=== PATIENT | male | born 1955 | race African-American/Black ===

== ENCOUNTER 2017-06-12 13:51 | Inpatient (IN) | payer OTHER ==
[2017-06-12] MEDS ORDERED: Acetaminophen 500 MG TAB PO PRN (20:21)
[2017-06-12] MEDS ORDERED: Ondansetron ODT 4 MG TAB PO PRN (20:21)
[2017-06-12] MEDS ORDERED: Ondansetron HCl/PF 4 MG/2 ML Vial IVP PRN (20:21)
[2017-06-12] MEDS ORDERED: cloNIDine 0.1 MG TAB PO PRN (20:21)
[2017-06-12] MEDS ORDERED: Acetaminophen 650 MG Suppository PR PRN (20:21)
[2017-06-12] MEDS ORDERED: hydrALAZINE 20 MG/ML VIAL SLOW IVP PRN (20:21)
--- NOTE | 2017-06-12 21:18 | RAD ---
PORTABLE AP ABDOMINAL RADIOGRAPH: 06/12/17 HISTORY: Small bowel obstruction. FINDINGS: There are dilated loops of small bowel based on radiographic evaluation. Some of the loops measure up to 5.8 cm. There is gas seen within portions of the colon. No suspicious calcifications are seen. De generative changes are noted in the spine. IMPRESSION: Dilated loops of small bowel which may related to partial small bowel obstruction or ileus. Upright i maging was not performed to evaluate for differential air fluid levels related to mechanical small rasheeda wel obstruction. CT scan may be helpful for further evaluation. POS: [facility]
[2017-06-12] MEDS: Pantoprazole 40 MG VIAL IVP SCH ×2 (22:55)
[2017-06-12] MEDS: Morphine 4 MG/ML VIAL SLOW IVP PRN (22:55)
[2017-06-12] MEDS: Sodium Chloride 0.9% 1,000 ML IV SCH (22:56)
--- NOTE | 2017-06-12 23:39 | HP ---
DATE OF ADMISSION: 06/12/2017 PRIMARY CARE PHYSICIAN: Ozzy Nguyen in [place], [place]. CHIEF COMPLAINT: Abdominal pain with nausea and vomiting. HISTORY OF PRESENT ILLNESS: This is a 61-year-old -Algerian male who presents to [facility] and transferred from [facility] [place] after presenting wi th increasing abdominal pain over the last 48 hours with associated nausea and vomiting. The patient states the symptoms began somewhat abruptly 2 days prior to this evaluation with associated nausea a nd multiple episodes of vomiting. The patient denies any recent travel history, trauma, injury, wu ge to his diet and states his last bowel movement was within the last 24 hours. The patient denies a ny prior history of bowel obstruction, but does state that he underwent colon resection for colon car cinoma with postoperative chemotherapy in 2006. The patient denies any dysuria, fever, chills, short ness of breath, or chest pain. The patient initially presented to [facility] in [place]. At which point, the patient was placed on NG tube with intermittent suction. Th e patient had return of large volume of gastric contents. The patient was subsequently transferred t o [place], [place]. At which point, the patient was then transferred to [facility] due to insurance issues. The patient states after placement of th e NG tube, he felt somewhat relieved and has had no further episodes of emesis. The patient denies t aking any home remedies for his symptoms and denies any sick contacts or family members with similar symptoms. PAST MEDICAL HISTORY: 1. Hypertension. 2. Coronary artery disease. 3. Hyperlipidemia. 4. Colon carcinoma, status post resection. 5. Question of depression. PAST SURGICAL HISTORY: 1. Status post colon resection. 2. Status post umbilical hernia repair. CURRENT MEDICATIONS: 1. Lipitor 10 mg p.o. daily. 2. Invega Sustenna 234 mg intramuscularly every month. 3. Mirtazapine 7.5 mg p.o. at bedtime. 4. Olmesartan 20 mg p.o. daily. 5. Omeprazole 40 mg p.o. daily. ALLERGIES: No known drug allergies. FAMILY HISTORY: No inheritable diseases per patient report. SOCIAL HISTORY: Patient resides in the [place], [place] area. Disabled after diagnosis of colon carc inoma. No current alcohol, tobacco, or illicit drug use. REVIEW OF SYSTEMS: The following complete review of systems was negative, unless otherwise mentioned in the HPI or below: Constitutional: Weight loss or gain, ability to conduct usual activities. Sk in: Rash, itching. Eyes: Double vision, pain. ENT/Mouth: Nose bleeding, neck stiffness, pain, te nderness. Cardiovascular: Palpitations, dyspnea on exertion, orthopnea. Respiratory: Shortness of breath, wheezing, cough, hemoptysis, fever or night sweats. Gastrointestinal: Poor appetite, abdom inal pain, heartburn, nausea, vomiting, constipation, or diarrhea. Genitourinary: Urgency, frequenc y, dysuria, nocturia. Musculoskeletal: Pain, swelling. Neurologic/Psychiatric: Anxiety, depressio n. Allergy/Immunologic: Skin rash, bleeding tendency. PHYSICAL EXAMINATION: VITAL SIGNS: On admission, blood pressure 116/79, pulse 92, respiratory rate 19, temperature 98.6 de grees Fahrenheit, O2 saturation 95% on room air. GENERAL APPEARANCE: This is a 61-year-old -Algerian male, alert and oriented x3, flat affect, responsive, in no acute distress. HEENT: Pupils are equal, round, and reactive to light and accommodation. Extraocular muscles are in tact. No scleral icterus. No conjunctival injection. Nares patent. Nasogastric tube in place. OP is clear. Oral mucosa dry appearing. NECK: Supple. No cervical adenopathy, no thyromegaly, no carotid bruits, no JVD appreciated. Cervi hazel spine with full active and passive range of motion. No meningeal signs appreciated. CHEST: Lungs are clear to auscultation bilaterally. No rhonchi or wheezing. CARDIOVASCULAR: S1, S2 without noted murmur, rub, or gallop. ABDOMEN: Rounded, soft with mild tenderness to palpation in the midepigastric region. No palpable m ass. Bowel sounds are positive in all four quadrants. EXTREMITIES: Warm and dry with fair turgor. No clubbing, cyanosis, or asymmetric edema appreciated. Pulses palpable distally at the dorsalis pedis, posterior tibial, and popliteal arteries bilaterall y. Capillary refill less than 2 seconds. NEUROLOGIC: Cranial nerves II through XII are grossly intact. No focal or lateralizing signs apprec iated. PERTINENT LABORATORY AND X-RAY FINDINGS: No laboratory data available. No radiographic information available to review. ASSESSMENT AND PLAN: 1. Partial small bowel obstruction. We will continue NG tube to low intermittent wall suctioning. N.p.o. except sips of water. We will consult General Surgery Service in the a.m. for further recomme ndations. Check KUB of the abdomen. Pain control with morphine sulfate 2 mg IV every 4 hours p.r.n. 2. Nausea and vomiting secondary to #1. We will continue Zofran 4 mg IV q.6 hours p.r.n. N.p.o. ex cept sips of water. 3. Hypertension. Resume home antihypertensive regimen and monitor clinical response. 4. History of colon carcinoma. Continue general supportive measures as outlined previously. Check KUB of the abdomen. Consider CT imaging of the abdomen and pelvis. We will obtain records from [facility] or [facility]. 5. Prophylaxis. Sequential compression devices while in bed. Pepcid 20 mg IV q.12 hours. 6. Code status is FULL. Surrogate medical decision maker is patient's brother, Miguelangel Nickerson.
[2017-06-13 04:37] VITALS: BMI 32.1
[2017-06-13 06:11] LABS: ALT (SGPT) 9 U/L (8-55); AST (SGOT) 16 U/L (5-34); Albumin 3.7 g/dL (3.4-4.8); Alkaline Phosphatase 50 U/L (40-150); Anion Gap 13 mmol/L (10-20); BUN (Urea Nitrogen) 19 mg/dL (8.4-25.7); Calc. Creatinine Clearance 89 mL/min (70-130); Carbon Dioxide 31 mmol/L (23-31); Chloride 104 mmol/L (98-107); Estimated GFR-MDRD 64; Globulin 2.8 g/dL (2.4-3.5); Glucose 79 mg/dL (80-115); Potassium 3.2 mmol/L (3.5-5.1); Protein, Total 6.5 g/dL (5.8-8.1); Sodium 145 mmol/L (136-145)
[2017-06-13 06:25] LABS: Eosinophils 6 % (0-10); Hemoglobin 11.5 g/dL (14.0-18.0); Lymphocytes 32 % (21-51); MDiff Complete? YES; Mean Corpuscular HGB CONC 33.3 g/dL (32.0-36.0); Mean Corpuscular Hemoglobin 27.6 pg (27.0-31.0); Mean Corpuscular Volume 82.8 fl (80.0-94.0); Mean Platelet Volume 8.2 fL (7.4-10.4); Monocytes 10 % (0-10); Neutrophil 49 % (42-75); Nucleated RBC 1 % (0); PLT Morphology Comment Appears Adequate; Platelet Count 194 thou/uL (130-400); RBC Distribution Width 11.9 % (11.5-14.5); RBC Morphology Normal; Reactive Lymphocytes 3 % (0-10); Red Blood Cell (RBC) Count 4.18 mill/uL (4.70-6.10); White Blood Cell (WBC) Count 4.8 thou/uL (4.8-10.8)
[2017-06-13] MEDS: Sodium Chloride 0.9% 1,000 ML IV SCH ×3 (08:02→15:03)
[2017-06-13] MEDS: Morphine 4 MG/ML VIAL SLOW IVP PRN ×3 (08:43→21:33)
[2017-06-13] MEDS ORDERED: MD-Gastroview 120 ML BOT ONE (14:18)
--- NOTE | 2017-06-13 15:37 | PDOC.PN ---
- Subjective Encounter Start Date: 06/13/17 Encounter Start Time: 15:30 Subjective: f/u for partial SBO tx with NGT decompression. KUB showed dilated small -: bowel loops. Some abd discomfort, no recurrent emesis. - Objective Resuscitation Status: Resuscitation Status FULL:Full Resuscitation MAR Reviewed: Yes Vital Signs & Weight: Vital Signs (12 hours) Temp Pulse Resp BP Pulse Ox 06/13/17 11:30 98.5 F 92 16 129/82 93 L 06/13/17 07:45 98.3 F 95 16 06/13/17 07:35 98.3 F 95 16 137/88 100 06/13/17 04:53 99.2 F 88 16 114/69 95 Weight Admit Weight 244 lb Weight 244 lb I&O: 06/12/17 06/13/17 06/14/17 06:59 06:59 06:59 Intake Total 900 Output Total 200 Balance 700 Result Diagrams: 06/13/17 05:19 06/13/17 05:19 Radiology Reviewed by me: Yes (KUB - dilated small bowel loops) Phys Exam - Physical Examination Constitutional: NAD NGT in place HEENT: PERRLA, moist MMs, sclera anicteric, oral pharynx no lesions Neck: no nodes, no JVD, supple Respiratory: no wheezing, no rales, no rhonchi, clear to auscultation bilateral Cardiovascular: RRR, no significant murmur, no rub, gallop mild distention and TTP, no mass Gastrointestinal: positive bowel sounds Musculoskeletal: no edema, pulses present Neurological: non-focal, normal sensation, moves all 4 limbs Psychiatric: normal affect, A&O x 3 Skin: no rash, normal turgor, cap refill <2 seconds Dx/Plan (1) Partial small bowel obstruction Status: Acute Comment: KUB confirmed partial small bowel obstruction, Gen surgery assistance appreciated, NGT LIWS, Morphine Sulfate for pain control, SBFT pending (2) Nausea & vomiting Code(s): R11.2 - NAUSEA WITH VOMITING, UNSPECIFIED Status: Acute Comment: Improved with NGT, NPO, Antiemetics prn (3) CKD (chronic kidney disease), stage II Code(s): N18.2 - CHRONIC KIDNEY DISEASE, STAGE 2 (MILD) Status: Chronic Comment: Continue IVF's, avoid nephrotoxic meds and contrast media (4) Hypokalemia Code(s): E87.6 - HYPOKALEMIA Status: Acute Comment: Change IVF NS with 40meq KCL @ 75ml/h, repeat K+ level in am (5) HTN (hypertension) Code(s): I10 - ESSENTIAL (PRIMARY) HYPERTENSION Status: Chronic Qualifiers: Hypertension type: essential hypertension Qualified Code(s): I10 - Essential (primary) hypertension Comment: Hold Olmesartan currently pending po intake, serial BP monitoring - Plan out of bed/ambulate, DVT proph w/SCDs Stable currently -: Continue NGT LIWS -: Appreciate Gen surgery assistance -: KUB with SBFT pending -: Change IVF NS with KCL * AM lab: CMP, CBC
--- NOTE | 2017-06-13 16:26 | HP ---
HISTORY OF PRESENT ILLNESS: Nacho Nickerson is a 61-year-old black male who lives in [place]. He is single. He is disabled from his colon cancer. He used to work doing welding. He states his life is pretty much sedentary. He does drive independently. The patient states that (today is Sat ) began having epigastric right upper quadrant pain, back radiation and nausea and vomiting. Hi s nausea and vomiting resolved. Apparently he was seen at [facility] in [place] and tr ansferred to [facility] in [place] and then for insurance reasons, transferred to this hospital last night. There are no records from those referring facility is available. Dr. Col haque, Hospitalist, has admitted him and his history is available. On admission, the patient's white cou nt is 4, hemoglobin 11.5. Comprehensive metabolic profile is essentially unremarkable. Creatinine 1 .37, bilirubin 2. The patient did have an abdominal x-ray this hospitalization demonstrated some dil ated small bowel loops, gas in the colon, but findings are limited due to portable nature of the x-ra y. The patient is able to stand. He does ambulate. The patient reports he had a bowel movement thi s morning. NG tube is down to about 73 cm from the nares and output overnight from his NG tube is re corded at 200 mL. This, however, is recorded in 06/14/2017 graphics and there is no record of [address] Vicente saw him at 842 last night and he probably made to the floor early this morning . The patient has never had such episodes before. He denies any history of biliary symptoms. PAST MEDICAL HISTORY: Hypertension, hyperlipidemia, history of colon cancer, history of depression. He reports being on disability from his colon cancer. The patient denies any history of heart surgery, cardiology consults or Cardiology stress test. Ana e is no EKG in the chart and I cannot find any records were submitted for evaluation at [facility] in [place] and from his stay at [facility] in [place] before he was tra nsferred here yesterday. He does have mild elevation of his creatinine on labs obtained here and the re are no prior records to compare to know if this is chronic kidney disease or acute kidney injury. PAST SURGICAL HISTORY: The patient underwent at [facility] 2006 operation, open laparotomy for colon cance r. He does not recall what part of his colon was removed. He reports having had a [facility]. He had a hernia repair about his umbilicus. He cannot recall that was before o r after his laparotomy in [place]. REVIEW OF SYSTEMS: [place] point noncontributory otherwise. PHYSICAL EXAMINATION: VITAL SIGNS: 6 feet 1, 244 pounds, 32 BMI. LUNGS: Clear to auscultation. EXTREMITIES: Cardiac rhythm without murmur or gallop. ABDOMEN: Soft, non-tympanitic, occasional bowel sounds. There is no tenderness. Midline incision a sy[place] the umbilicus to pubis well healed. No hernias evident. EXTREMITIES: Unremarkable. LABORATORY DATA: Sodium 145, potassium 3.2, bilirubin 2.0. AST, ALT, alkaline phosphatase are ion l. GFR 64, creatinine 1.37, hemoglobin 11, white count 4. Abdominal x-rays portable as noted above. No upright films obtained. ASSESSMENT AND PLAN: 1. History given for a bowel obstruction, although the portable single view x-ray suggests a slightl y dilated small bowel loops, but a 2-view abdomen was not obtained. I do not have any records as to whether he had a CAT scan or other abdominal x-ray results from the referring hospitals, I have reque sted that. At this point, due to his low volume of NG tube output and lack of tympany on exam and un impressive portable abdominal x-ray, we would obtain a small bowel follow-through. We will await the se studies. In addition, we will obtain ultrasound of the gallbladder since his pain is epigastric, right upper quadrant, on admission his bilirubin slightly elevated. We will repeat his hepatic funct ion tomorrow. We will await these radiological surveys and clinical course prior to any other recomm endations. 2. Possible acute kidney injury or mild chronic kidney disease. Follow up basic metabolic profile t omorrow. 3. History of colon cancer. He apparently is up to date on his colonoscopy performed four years ago in [place]. No results are available. He did undergo radiation and chemotherapy at that time.
[2017-06-13] MEDS: D5 NS w/ 40 mEq KCl 1,000 ML IV SCH (16:40)
--- NOTE | 2017-06-13 16:44 | ULT ---
RIGHT UPPER QUADRANT ULTRASOUND 06/13/17 COMPARISON: None. HISTORY: Epigastric pain. TECHNIQUE: Multiplanar colbert scale sonographic imaging of the right upper quadrant obtained. FINDINGS: The pancreas is obscured by bowel gas. No focal liver lesion or intrahepatic biliary dilatation is seen. The common bile duct measures approximately 4-5 mm, within normal limits. Right kidney measures 12 cm in craniocaudal dimension and demonstrates no stone, hydronephrosis or ma ss. The extrusion press adjuster reports a negative South's sign. The gallbladder wall is normal in thickness. No pericholecystic fluid or gallbladder stones. IMPRESSION: No acute findings. POS: [facility]
[2017-06-13] MEDS ORDERED: Ondansetron ODT 8 MG TAB PO PRN (18:51)
[2017-06-13] MEDS ORDERED: Ondansetron ORAL SOLN. 4 MG/5 ML UDCUP PO PRN ×4 (18:51)
[2017-06-13] MEDS ORDERED: Ondansetron ODT 8 MG TAB SL PRN (18:51)
[2017-06-13] MEDS: Pantoprazole 40 MG VIAL IVP SCH ×2 (21:32)
[2017-06-13] MEDS: Mirtazapine 15 MG TAB PO SCH (21:32)
[2017-06-14] MEDS: D5 NS w/ 40 mEq KCl 1,000 ML IV SCH ×2 (02:29→17:18)
[2017-06-14] MEDS: Morphine 4 MG/ML VIAL SLOW IVP PRN (05:48)
[2017-06-14 06:12] LABS: ALT (SGPT) 10 U/L (8-55); AST (SGOT) 15 U/L (5-34); Albumin 3.7 g/dL (3.4-4.8); Alkaline Phosphatase 49 U/L (40-150); Bilirubin, Direct 0.8 mg/dL (0.1-0.3); Bilirubin, Total 1.9 mg/dL (0.2-1.2); Protein, Total 6.5 g/dL (5.8-8.1)
[2017-06-14 06:14] LABS: ALT (SGPT) 11 U/L (8-55); AST (SGOT) 16 U/L (5-34); Albumin 3.7 g/dL (3.4-4.8); Alkaline Phosphatase 49 U/L (40-150); Anion Gap 11 mmol/L (10-20); BUN (Urea Nitrogen) 17 mg/dL (8.4-25.7); Bilirubin, Total 1.9 mg/dL (0.2-1.2); Calc. Creatinine Clearance 101 mL/min (70-130); Carbon Dioxide 28 mmol/L (23-31); Chloride 113 mmol/L (98-107); Estimated GFR-MDRD 74; Globulin 2.8 g/dL (2.4-3.5); Glucose 100 mg/dL (80-115); Potassium 3.5 mmol/L (3.5-5.1); Protein, Total 6.5 g/dL (5.8-8.1); Sodium 148 mmol/L (136-145)
[2017-06-14 06:24] LABS: Band 3 % (5-11); Lymphocytes 25 % (21-51); MDiff Complete? YES; Mean Corpuscular Hemoglobin 28.9 pg (27.0-31.0); Mean Corpuscular Volume 82.6 fl (80.0-94.0); Mean Platelet Volume 7.9 fL (7.4-10.4); Monocytes 12 % (0-10); Neutrophil 59 % (42-75); PLT Morphology Comment Appears Adequate; Platelet Count 203 thou/uL (130-400); RBC Distribution Width 11.9 % (11.5-14.5); Reactive Lymphocytes 1 % (0-10); Red Blood Cell (RBC) Count 4.15 mill/uL (4.70-6.10); White Blood Cell (WBC) Count 3.8 thou/uL (4.8-10.8)
--- NOTE | 2017-06-14 11:25 | RAD ---
SMALL BOWEL FOLLOW THROUGH STUDY: Date: 06/13/17 HISTORY: Small bowel obstruction. COMPARISON: None. FINDINGS: The patient was given contrast through the enteric tube. There is dilatation of proximal small bowel loops. There is contrast seen in the large bowel after 9 hours. IMPRESSION: Dilated loops of small bowel without a high grade obstruction as there is contrast seen within the la rge bowel after 9 hours. POS: [facility]
--- NOTE | 2017-06-14 13:52 | RAD ---
ABDOMEN 2 VIEWS WITH 1 VIEW CHEST: Date: 06/14/17 HISTORY: Small bowel obstruction. COMPARISON: Small bowel follow-through from prior day. FINDINGS: There are some peripheral parenchymal opacities in the right lung base. Port catheter is in place. Enteric tube is in place with tip in the gastric fundus. There are dilated loops of small bowel with air fluid levels. Contrast is seen throughout the large b owel. IMPRESSION: 1. No evidence of high grade small bowel obstruction. 2. Enteric tube tip at gastric fundus. 3. Opacities in right lung base with port catheter in place. This may be a sequelae of scarring or m ass. POS: [facility]
--- NOTE | 2017-06-14 16:43 | PDOC.PN ---
- Subjective Encounter Start Date: 06/14/17 Encounter Start Time: 11:00 Subjective: pt up in bed no complains, is passing gas - Objective Resuscitation Status: Resuscitation Status FULL:Full Resuscitation Vital Signs & Weight: Vital Signs (12 hours) Temp Pulse Resp BP BP Pulse Ox 06/14/17 16:28 98.8 F 74 16 125/81 97 06/14/17 11:30 98.3 F 91 16 146/91 H 95 06/14/17 08:00 98.9 F 81 17 148/90 H 93 L Weight Admit Weight 244 lb Weight 244 lb I&O: 06/13/17 06/14/17 06/15/17 06:59 06:59 06:59 Intake Total 1900 900 Output Total 300 450 Balance 1600 450 Result Diagrams: 06/14/17 05:24 06/14/17 05:24 Phys Exam - Physical Examination HEENT: PERRLA, moist MMs, sclera anicteric, TM's clear, oral pharynx no lesions , 2+ tonsils Neck: no nodes, no JVD, supple, full ROM Respiratory: no wheezing, no rales, no rhonchi, wheezing present, clear to auscultation bilateral Cardiovascular: RRR, no significant murmur, no rub, gallop, irregular Gastrointestinal: soft, non-tender bsx2, ng tube Musculoskeletal: no edema, pulses present, edema present Dx/Plan - Plan (1) Partial small bowel obstruction (2) Nausea & vomiting (3) CKD (chronic kidney disease), stage II (4) Hypokalemia am (5) HTN (hypertension) - Plan out of bed/ambulate, DVT proph w/SCDs Stable currently -: Continue NGT LIWS -: Appreciate Gen surgery assistance -: KUB in am small bowel no high grade obs -:continue current fluids will check labs in am. brother updated * . Review of Systems - Review of Systems Eyes: negative: Pain, Vision Change, Conjunctivae Inflammation, Eyelid Inflammation, Redness, Other ENT: negative: Ear Pain, Ear Discharge, Nose Pain, Nose Discharge, Nose Congestion, Mouth Pain, Mouth Swelling, Throat Pain, Throat Swelling, Other Respiratory: negative: Cough, Dry, Shortness of Breath, Hemoptysis, SOB with Excertion, Pleuritic Pain, Sputum, Wheezing Cardiovascular: negative: chest pain, palpitations, orthopnea, paroxysmal nocturnal dyspnea, edema, light headedness, other Gastrointestinal: negative: Nausea, Vomiting, Abdominal Pain, Diarrhea, Constipation, Melena, Hematochezia, Other Genitourinary: negative: Dysuria, Frequency, Incontinence, Hematuria, Retention , Other - Medications/Allergies Allergies/Adverse Reactions: Allergies Allergy/AdvReac Type Severity Reaction Status Date / Time No Known Drug Allergies Allergy Verified 06/12/17 20:28 Medications: Current Medications Acetaminophen (Tylenol) 1,000 mg PO Q6H PRN PRN Reason: Headache/Fever or Mild Pain Acetaminophen (Tylenol) 650 mg FL Q4H PRN PRN Reason: Headache/Fever or Mild Pain Clonidine (Catapres) 0.1 mg PO Q4H PRN PRN Reason: Systolic BP > 180 Hydralazine HCl (Apresoline) 10 mg SLOW IVP Q4H PRN PRN Reason: Systolic BP > 180 Potassium Chloride/Dextrose/Sod Cl (D5 Ns W/ 40 Meq Kcl) 1,000 mls @ 75 mls/hr IV .[id number] [facility] Last Admin: 06/14/17 02:29 Dose: Not Given Mirtazapine (Remeron) 7.5 mg PO HS [facility] Last Admin: 06/13/17 21:32 Dose: 7.5 mg Morphine Sulfate (Morphine) 2 mg SLOW IVP Q4H PRN PRN Reason: Moderate Pain (4-6) Last Admin: 06/14/17 05:48 Dose: 2 mg Ondansetron HCl (Zofran Odt) 4 mg PO Q6H PRN PRN Reason: Nausea/Vomiting Last Admin: 06/13/17 17:25 Dose: 4 mg Ondansetron HCl (Zofran) 4 mg IVP Q6H PRN PRN Reason: Nausea/Vomiting Ondansetron HCl (Zofran Odt) 8 mg SL BIDPRN PRN PRN Reason: Nausea/Vomiting Ondansetron HCl (Zofran Odt) 8 mg PO BIDPRN PRN PRN Reason: Nausea/Vomiting Ondansetron HCl (Zofran) 4 mg PO Q6H PRN PRN Reason: Nausea/Vomiting Ondansetron HCl (Zofran) 8 mg PO Q6H PRN PRN Reason: Nausea/Vomiting Pantoprazole Sodium (Protonix) 40 mg IVP 2100 [facility] Last Admin: 06/13/17 21:32 Dose: 40 mg Sodium Chloride (Flush - Normal Saline) 10 ml IVF Q12HR [facility] Last Admin: 06/14/17 09:33 Dose: Not Given Sodium Chloride (Flush - Normal Saline) 10 ml IVF PRN PRN PRN Reason: Saline Flush
[2017-06-14] MEDS ORDERED: Ibuprofen 600 MG TAB PO PRN (17:17)
[2017-06-14] MEDS ORDERED: traMADol HCl 50 MG TAB PO PRN (17:17)
[2017-06-14] MEDS ORDERED: PALIPERIDONE PALMITATE IM SCH ×3 (17:30→17:45)
--- NOTE | 2017-06-14 18:18 | PRG ---
DATE OF SERVICE: 06/14/2017 SUBJECTIVE: Mr. Nickerson is doing well today. OBJECTIVE: VITAL SIGNS: 98.8 degrees, 74, 16, 125/81. LUNGS: Clear to auscultation. CARDIAC: Regular rate and rhythm murmur or gallop. ABDOMEN: Soft, nontender, no masses. Good bowel sounds. LABORATORY DATA: Small bowel follow-through obtained last night and followup x-rays this morning rev eal absence of bowel obstruction. There are no significantly dilated small bowel loops. There is co ntrast in the colon. He has had multiple bowel movements. NG tube revealed an output of 300 mL. Th morning, I removed his NG tube. CBC, base met is normal this morning. His mild elevation of his creatinine 1.37 has returned to norm al at 1.2. GFR is normal. His bilirubin is elevated to 1.9, down from 2.0, this may be more chronic . Ultrasound of the gallbladder yesterday was normal. No biliary obstruction, no gallstones. ASSESSMENT AND PLAN: 1. Resolved bowel obstruction. Remove NG tube, advance diet, saline lock. Hopefully, can be discha rged home tomorrow. 2. Elevated liver function tests, uncertain etiology, may be related to obesity, 6 foot, 244 pounds, 32 BMI. No further indications for surgical evaluation or therapy.
[2017-06-14] MEDS ORDERED: Enoxaparin Sodium 40 MG/0.4 ML SYRINGE SC SCH (21:00)
[2017-06-14] MEDS ORDERED: Atorvastatin Calcium 10 MG TAB PO SCH ×2 (21:00)
[2017-06-14] MEDS: traMADol HCl 50 MG TAB PO PRN (22:46)
[2017-06-14] MEDS: Mirtazapine 15 MG TAB PO SCH (22:46)
[2017-06-15 06:30] LABS: Anion Gap 10 mmol/L (10-20); BUN (Urea Nitrogen) 13 mg/dL (8.4-25.7); Calc. Creatinine Clearance 117 mL/min (70-130); Calcium 9.1 mg/dL (7.8-10.44); Carbon Dioxide 26 mmol/L (23-31); Chloride 109 mmol/L (98-107); Estimated GFR-MDRD 88; Glucose 95 mg/dL (80-115); Phosphorus 2.5 mg/dL (2.3-4.7); Potassium 3.5 mmol/L (3.5-5.1); Sodium 141 mmol/L (136-145)
[2017-06-15 07:35] LABS: Band 20 % (5-11); Eosinophils 4 % (0-10); Hemoglobin 11.7 g/dL (14.0-18.0); Lymphocytes 12 % (21-51); MDiff Complete? YES; Mean Corpuscular HGB CONC 34.6 g/dL (32.0-36.0); Mean Corpuscular Hemoglobin 28.4 pg (27.0-31.0); Mean Corpuscular Volume 82.2 fl (80.0-94.0); Mean Platelet Volume 7.9 fL (7.4-10.4); Monocytes 12 % (0-10); Neutrophil 45 % (42-75); PLT Morphology Comment Appears Adequate; Platelet Count 204 thou/uL (130-400); RBC Distribution Width 11.6 % (11.5-14.5); RBC Morphology Normal; Reactive Lymphocytes 7 % (0-10); White Blood Cell (WBC) Count 5.6 thou/uL (4.8-10.8)
[2017-06-15] MEDS ORDERED: Non-Formulary Item 1 EACH (Omeprazole [Omeprazole] 1 TAB) PO SCH ×2 (09:00)
[2017-06-15] MEDS ORDERED: Polyethylene Glycol 3350 17 GM Packet PO SCH (09:00)
[2017-06-15] MEDS: traMADol HCl 50 MG TAB PO PRN (10:04)
--- NOTE | 2017-06-15 13:10 | PRG ---
DATE OF SERVICE: 06/15/2017 SUBJECTIVE: Nacho Nickerson, is doing well today. He has had multiple bowel movements. He is tolerat ing a regular diet. OBJECTIVE: LUNGS: Clear to auscultation. CARDIAC: Regular rate and rhythm without murmur or gallop. ABDOMEN: Soft, nontender. Nontympanitic nondistended. ASSESSMENT AND PLAN: Resolved partial bowel obstruction. From a surgical standpoint, the patient co uld be discharged home. At this point, I will see him as needed. Please call if further assistance is necessary. I will see him as needed as an outpatient.
--- NOTE | 2017-06-15 17:25 | DIS ---
DATE OF ADMISSION: 06/12/2017 DATE OF DISCHARGE: 06/15/2017 DISCHARGE DIAGNOSES: 1. Small-bowel obstruction. 2. Right lung granuloma. 3. Mildly elevated bilirubin. 4. Hypokalemia, resolved. HOSPITAL COURSE: The patient is a very pleasant 61-year-old male who initially presented to the hosp ital with complaints of abdominal pain, nausea and vomiting. The patient did undergo CAT scan of the abdomen and pelvis at [facility]. I was able to see his CAT scan results, which indicat ed a right lower lung granuloma and possible partial small-bowel obstruction. The patient then was s een by Surgical Services at [facility]. The patient had an NG tube initially and then und erwent an acute abdominal series, which indicated no evidence of high grade small-bowel obstruction a nd opacities in the right lung base with a Port-A-Cath in place. The patient was passing flatus. Hi s NG tube was discontinued by the surgeon and the patient was fed a diet. The patient tolerated the diet and was discharged home on the . The patient's brother, Mr. Blum has been updated with morales llanes. The patient's brother also was told about the acute abdominal series finding of the opacities of the right lower lung and also the findings in the CAT scan. Recommended to take the CAT scan results to his PCP for his next appointment, specifically given his history of colon cancer. The patient wi ll be put on MiraLax upon discharge. DISCHARGE MEDICATIONS: Are as the following, mirtazapine 0.5 mg p.o. at bedtime, atorvastatin 1 p.o. at bedtime, Invega Sustenna 1.5 IM, omeprazole 1 tab p.o. daily, olmesartan and medoxomil 1 p.o. kodi ly and MiraLax 17 grams p.o. daily. PHYSICAL EXAMINATION: VITAL SIGNS: 98.7, 72, 16, 132/60 and 96% on room air. GENERAL: He is awake, alert, oriented x3, in no apparent distress. CV: S1, S2 present. No murmurs, rubs or gallops. LUNGS: Clear to auscultation, rhonchi or wheezes noted. ABDOMEN: Soft. Mild tenderness to epigastric area. Bowel sounds are present x2. DISCHARGE INSTRUCTIONS: The patient will be discharged home and follow up with PCP.
[2017-06-15 18:04] VITALS: BP 129/84; TEMP 98.4
== END 2017-06-15 18:29 | disposition home or self-care (01) | DRG 390 ==
LOC: SURG B 19:11
PROVIDERS: ADMIT Internal Medicine; ATTEND Internal Medicine
DX: K56.600 Partial intestinal obstruction, unspecified as to cause (principal); E78.5 Hyperlipidemia, unspecified; I10 Essential (primary) hypertension; Z90.49 Acquired absence of other specified parts of digestive tract; Z92.3 Personal history of irradiation; Z92.21 Personal history of antineoplastic chemotherapy; Z85.038 Personal history of other malignant neoplasm of large intestine; I25.10 Atherosclerotic heart disease of native coronary artery without angina pectoris; Z79.899 Other long term (current) drug therapy; E87.6 Hypokalemia; N18.2 Chronic kidney disease, stage 2 (mild)
CPT/HCPCS: 36415; 74018; 74022; 74250; 76705; 80048; 80053; 83735; 84100; 85007; 85025; 85027; C9113; G8978-GP-CH; G8979-GP-CH; G8980-GP-CH; J1650; J2270; Q0162

== ENCOUNTER 2018-01-30 16:26 | Inpatient (IN) | payer OTHER ==
[2018-01-30] MEDS ORDERED: Ondansetron PF 4 MG/2 ML Vial ONE (16:53)
[2018-01-30] MEDS ORDERED: Morphine 4 MG/ML VIAL ONE (16:58)
[2018-01-30] MEDS ORDERED: Ondansetron PF 4 MG/2 ML Vial IVP PRN (18:54)
[2018-01-30] MEDS ORDERED: Ondansetron ODT 4 MG TAB SL PRN (18:54)
[2018-01-30] MEDS: Dextrose 5 % And 0.9 % NaCl 1,000 ML IV SCH (19:57)
[2018-01-31] MEDS: Dextrose 5 % And 0.9 % NaCl 1,000 ML IV SCH ×4 (03:25→23:07)
[2018-01-31 05:51] VITALS: BMI 31.9
[2018-01-31] MEDS ORDERED: Ondansetron ODT 4 MG TAB SL PRN (06:26)
[2018-01-31] MEDS ORDERED: Ondansetron PF 4 MG/2 ML Vial IVP PRN (06:27)
[2018-01-31] MEDS ORDERED: Ketorolac Tromethamine 30 MG/ML VIAL IVP PRN ×2 (06:27→19:26)
[2018-01-31] MEDS ORDERED: Acetaminophen 1,000 MG in Premix Bag 1 BAG IVPB PRN ×2 (06:29→19:26)
[2018-01-31 10:54] LABS: ALT (SGPT) 7 U/L (8-55); AST (SGOT) 9 U/L (5-34); Albumin 3.4 g/dL (3.4-4.8); Alkaline Phosphatase 42 U/L (40-150); Anion Gap 10 mmol/L (10-20); BUN (Urea Nitrogen) 13 mg/dL (8.4-25.7); Bilirubin, Total 1.6 mg/dL (0.2-1.2); Calc. Creatinine Clearance 114 mL/min (70-130); Calcium 8.4 mg/dL (7.8-10.44); Carbon Dioxide 30 mmol/L (23-31); Chloride 106 mmol/L (98-107); Estimated GFR-MDRD Greater than 90; Globulin 2.7 g/dL (2.4-3.5); Glucose 105 mg/dL (80-115); Potassium 3.2 mmol/L (3.5-5.1); Protein, Total 6.1 g/dL (5.8-8.1); Sodium 143 mmol/L (136-145)
[2018-01-31 11:03] LABS: Band 12 % (5-11); Eosinophils 6 % (0-10); Hemoglobin 12.3 g/dL (14.0-18.0); Lymphocytes 37 % (21-51); MDiff Complete? YES; Mean Corpuscular HGB CONC 34.9 g/dL (32.0-36.0); Mean Corpuscular Hemoglobin 28.8 pg (27.0-31.0); Mean Corpuscular Volume 82.5 fL (78.0-98.0); Mean Platelet Volume 8.5 fL (7.4-10.4); Monocytes 9 % (0-10); Neutrophil 36 % (42-75); Platelet Count 177 thou/uL (130-400); RBC Distribution Width 11.8 % (11.5-14.5); Red Blood Cell (RBC) Count 4.28 mill/uL (4.70-6.10); White Blood Cell (WBC) Count 3.1 thou/uL (4.8-10.8)
--- NOTE | 2018-01-31 11:35 | RAD ---
ACUTE ABDOMINAL SERIES: DATE: 01/31/2018. PROVIDED CLINICAL HISTORY: Small bowel obstruction. FINDINGS: Comparison 06/14/2017. Cardiac and mediastinal silhouette is unchanged in appearance. Right-sided im planted port is again noted in similar position. Enteric catheter is noted, the distal aspects of wh ich overlie the left upper quadrant medially. The proximal sidehole lucency is likely in the region of the gastroesophageal junction. The abdominal bowel gas pattern is nonspecific. There is no evide nce for a pneumoperitoneum. The lungs appear clear. No pleural fluid or pneumothorax apparent. IMPRESSION: 1. No evidence for an acute cardiopulmonary process. 2. Nonspecific bowel gas pattern. POS: [facility]
[2018-01-31] MEDS ORDERED: PALIPERIDONE PALMITATE IM SCH (13:30)
--- NOTE | 2018-01-31 19:29 | HP ---
HISTORY OF PRESENT ILLNESS: Nacho Nickerson is a 62-year-old black male, who recently underwent upper endoscopy and colonoscopy in [place] on . He states he tolerated the bowel prep without problems, did not have any nausea or vomiting. After undergoing the procedure on , the patient has been having some abdominal discomfort. He presented to [facility], had a CAT scan demonstrating some axyx-hd-yqfxgudgfe dilated upper bowel loops, decompressed distal bowel loops without a definite transition point that was read as possible bowel obstruction. A 12-Romansh NG tube was placed to 40 cm. X-rays obtained on admission here revealed the NG tube to be in the distal esophagus. It was not repositioned in the emergency room. I repeated the 2-view abdominal x-ray this morning and the bowel-gas pattern is nonspecific. There is a dilated loop of small bowel in the left upper quadrant, but there is gas in the colon and small bowel. The patient states that his abdomen does not hurt. The NG-tube is 12-Romansh, it is now located at 45 cm. Abdominal x-rays revealed the tube to be in the distal esophagus. Gastric drainage overnight was 500 mL. ALLERGIES: NONE. TOBACCO: None. PAST MEDICAL HISTORY: Hypertension, hyperlipidemia, history of colon cancer and right colectomy, history of depression, reports disability from his colon cancer, history of chronic kidney disease, mild. PAST SURGICAL HISTORY: At [facility] in 2006, open laparotomy for colon cancer, reports having had a colonoscopy in [place] 4 years ago. Repeat EGD and colonoscopy recently last week. Hernia repair by his umbilicus in the past. MEDICATIONS: 1. Sertraline 1.5 tablets a day. 2. MiraLAX daily. 3. Invega Sustenna as directed. 4. Omeprazole 20 mg a day. 5. Medoxomil one tablet daily. 6. Mirtazapine at bedtime. 7. Lipitor at bedtime. His pharmacy is in [place], [place]. PHYSICAL EXAMINATION: VITAL SIGNS: 5 feet 10 inches, 222 pounds. 98.2, 82, 16, 130/80. LUNGS: Clear to auscultation. CARDIAC: Regular rate and rhythm without murmur or gallop. ABDOMEN: Soft, nontender, and nondistended. Non-tympanitic. Midline scar well healed without hernias. LABORATORY DATA: White count 3, hemoglobin 12 this morning, potassium 3.2, bilirubin 1.6 today, BUN and creatinine of 13 and 0.96 today. ASSESSMENT: 1. Possible ileus versus partial bowel obstruction per CAT scan in [place] yesterday. Currently, the NG tube is malpositioned. It is too small. It is not adequately functional. It has mostly fallen out. Abdominal x-rays this morning are nonspecific. Would remove his tube and give him regular diet and see how he tolerates it. 2. History of colon cancer. PLAN: Discharge home tomorrow if he is doing well. We will repeat abdominal x-rays as needed. Job ID: [id number]
[2018-01-31] MEDS: Atorvastatin Calcium 10 MG TAB PO SCH (20:50)
[2018-01-31] MEDS: Mirtazapine 15 MG TAB PO SCH (20:50)
[2018-02-01] MEDS: Dextrose 5 % And 0.9 % NaCl 1,000 ML IV SCH ×2 (04:39→13:23)
[2018-02-01 06:14] LABS: ALT (SGPT) 8 U/L (8-55); AST (SGOT) 9 U/L (5-34); Albumin 3.3 g/dL (3.4-4.8); Alkaline Phosphatase 51 U/L (40-150); Anion Gap 9 mmol/L (10-20); BUN (Urea Nitrogen) 11 mg/dL (8.4-25.7); Bilirubin, Total 1.1 mg/dL (0.2-1.2); Calc. Creatinine Clearance 106 mL/min (70-130); Calcium 8.6 mg/dL (7.8-10.44); Carbon Dioxide 31 mmol/L (23-31); Chloride 104 mmol/L (98-107); Estimated GFR-MDRD 89; Globulin 2.7 g/dL (2.4-3.5); Glucose 92 mg/dL (80-115); Potassium 3.3 mmol/L (3.5-5.1); Sodium 141 mmol/L (136-145)
[2018-02-01 06:19] LABS: Band 2 % (5-11); Eosinophils 7 % (0-10); Hemoglobin 11.6 g/dL (14.0-18.0); Lymphocytes 22 % (21-51); MDiff Complete? YES; Mean Corpuscular HGB CONC 34.2 g/dL (32.0-36.0); Mean Corpuscular Hemoglobin 28.5 pg (27.0-31.0); Mean Corpuscular Volume 83.2 fL (78.0-98.0); Mean Platelet Volume 8.5 fL (7.4-10.4); Monocytes 15 % (0-10); Neutrophil 52 % (42-75); Platelet Count 180 thou/uL (130-400); RBC Distribution Width 11.7 % (11.5-14.5); Reactive Lymphocytes 2 % (0-10); Red Blood Cell (RBC) Count 4.07 mill/uL (4.70-6.10); White Blood Cell (WBC) Count 4.3 thou/uL (4.8-10.8)
[2018-02-01] MEDS: Polyethylene Glycol 3350 17 GM Packet PO SCH (08:26)
[2018-02-01] MEDS ORDERED: Polyethylene Glycol 3350 17 GM Packet PO SCH (09:00)
--- NOTE | 2018-02-01 10:24 | RAD ---
FRONTAL RADIOGRAPH CHEST TWO VIEWS OF THE ABDOMEN: DATE: 02/01/2018. COMPARISON: 01/31/2018. HISTORY: Small bowel obstruction. FINDINGS: Frontal radiograph chest demonstrates stable increased linear interstitial density and pulmonary hype rinflation with a stable right-sided port-a-cath. No pneumothorax, pleural fluid, lobar consolidatio n, or alveolar edema. Upright imaging demonstrates no free intraperitoneal air. There is gas within the colon in the left abdomen. No gas-filled dilated small bowel. Nasogastric tube has been remove d since the prior examination. Significant stool overlies the rectum. IMPRESSION: Interval removal of nasogastric tube - otherwise, unchanged. POS: [facility]
[2018-02-01] MEDS ORDERED: Milk Of Magnesia 30 ML UDCUP PO PRN (17:02)
--- NOTE | 2018-02-01 17:36 | PRG ---
DATE OF SERVICE: 02/01/2018 SUBJECTIVE: Nacho Nickerson is doing well today. He has not had any nausea or vomiting. OBJECTIVE: VITAL SIGNS: Temperature 99 degrees, pulse 70, blood pressure 95/58. LUNGS: Clear to auscultation. CARDIAC: Regular rate and rhythm without murmur or gallop. ABDOMEN: Soft plus bowel sounds, nontender, minimal tympany. ASSESSMENT AND PLAN: Recovering partial bowel obstruction. He is tolerating his diet, but has not had a bowel movement. He has passed a small amount of flatus. Observe him today and plan to discharge home tomorrow if he is doing well. Small bowel follow-through was not performed. Abdominal x-rays this morning are nonspecific. There is no evidence of bowel obstruction. We will plan to give him MiraLax and milk of magnesia. Plan to discharge home tomorrow if he is doing well with good bowel function. Job ID: [id number]
[2018-02-01] MEDS: Atorvastatin Calcium 10 MG TAB PO SCH (21:34)
[2018-02-01] MEDS: Mirtazapine 15 MG TAB PO SCH (21:34)
[2018-02-02] MEDS: Polyethylene Glycol 3350 17 GM Packet PO SCH (08:22)
--- NOTE | 2018-02-02 12:09 | PRG ---
DATE OF SERVICE: SUBJECTIVE: Nacho Nickerson is doing well today. He tolerated his diet. He has not had bowel movements. He has not had any pain. OBJECTIVE: VITAL SIGNS: Temperature 98.6 degrees, pulse 76, blood pressure 148/88. LUNGS: Clear to auscultation. CARDIAC: Regular rate and rhythm without murmur or gallop. ABDOMEN: Soft, nontender, and nondistended, non-tympanitic. ASSESSMENT AND PLAN: Resolved partial bowel obstruction. Discharged to home today. Follow up in my office as needed. Job ID: [id number]
[2018-02-02 15:57] VITALS: BP 115/72; TEMP 99
--- NOTE | 2018-02-03 05:38 | DIS ---
DATE OF ADMISSION: 01/30/2018 DATE OF DISCHARGE: 02/02/2018 DISCHARGE DIAGNOSIS: Partial bowel obstruction from prior surgery. PROCEDURE DURING THIS HOSPITALIZATION: Abdominal x-rays. HISTORY: A 62-year-old black male, recently underwent upper and lower endoscopy in [place] a few days prior to this admission. After undergoing these procedures on , the patient has been having some abdominal discomfort. He went to [facility] in [place] and a CAT scan demonstrating noqj-ce-spifaplb dilated upper and small-bowel loops, decompressed distal small bowel loops, definite transition point not identified, suggesting a possible bowel obstruction. He was unfortunately placed a 12-Bermudian NG tube. When I saw him in the hospital, this NG tube was at 40 cm in the mid esophagus. He was not repositioned in the emergency room. At our emergency room on presentation, two-view abdominal x-ray confirmed this. On the morning of evaluation, the patient's abdomen was soft and nontender, had good bowel sounds, was passing flatus. He states he had a liquid stool the day before. The NG tube was removed. Small bowel follow-through not undertaken. Abdominal x-rays revealed some mildly distended loops, but he had good bowel sounds and bowel function. His diet was advanced. He was observed and he was discharged home with followup in my office as needed. In 2006, he had open laparotomy for colon cancer, colonoscopy 4 years ago and more recently a few days ago, tolerated the prep well without nausea or vomiting. DISCHARGE MEDICATIONS: Sertraline, MiraLax, Invega, omeprazole, and Lipitor. He lives in [place]. Job ID: [id number]
== END 2018-02-02 16:36 | disposition home or self-care (01) | DRG 390 ==
LOC: ERS 16:26 → SURG A 17:19
PROVIDERS: ADMIT Specialist; ATTEND Specialist
DX: K56.600 Partial intestinal obstruction, unspecified as to cause (principal)
CPT/HCPCS: 36415; 74022; 80053; 85025; 96374; 96375; J2270; J2405; J7042

== ENCOUNTER 2020-03-08 15:19 | Observation (INO) | payer OTHER ==
--- NOTE | 2020-03-08 15:50 | RAD ---
Exam: Chest one view HISTORY:Chest pain Comparison: 02/01/2018 FINDINGS: Cardiac silhouette:Normal cardiac silhouette. Lines and tubes: Stable right-sided Mediport catheter Aorta: Unremarkable Pulmonary vessels: Normal Costophrenic angles: Clear LUNGS: No masses or consolidation. Pneumothorax: None Osseous abnormalities: None IMPRESSION: No acute cardiopulmonary process.
[2020-03-08 15:59] LABS: #Basophils 0.1 thou/uL (0.0-0.2); #Eosinphils 0.2 thou/uL (0.0-0.7); #Lymphocytes 1.1 thou/uL (1.20-3.40); #Monocytes 0.9 thou/uL (0.11-0.59); %Basophils 0.5 % (0.0-1.0); %Eosinophils 1.7 % (0.0-10.0); %Lymphocytes 10.6 % (21.0-51.0); %Monocytes 8.8 % (0.0-10.0); %Neutrophils 78.3 % (42.0-75.0); Hemoglobin 13.4 g/dL (14.0-18.0); Mean Corpuscular HGB CONC 33.7 g/dL (32.0-36.0); Mean Corpuscular Hemoglobin 27.9 pg (27.0-31.0); Mean Corpuscular Volume 82.7 fL (78.0-98.0); Mean Platelet Volume 9.3 fL (7.4-10.4); Platelet Count 198 thou/uL (130-400); RBC Distribution Width 12.3 % (11.5-14.5); Red Blood Cell (RBC) Count 4.82 mill/uL (4.70-6.10); White Blood Cell (WBC) Count 10.2 thou/uL (4.8-10.8)
[2020-03-08 16:30] LABS: ALT (SGPT) 14 U/L (8-55); AST (SGOT) 23 U/L (5-34); Alkaline Phosphatase 84 U/L (40-110); Anion Gap 16 mmol/L (10-20); BUN (Urea Nitrogen) 11 mg/dL (8.4-25.7); Bilirubin, Total 0.8 mg/dL (0.2-1.2); CK (CPK) 151 U/L (30-200); Calc. Creatinine Clearance 0 mL/min (70-130); Calcium 8.7 mg/dL (7.8-10.44); Carbon Dioxide 24 mmol/L (23-31); Chloride 101 mmol/L (98-107); Globulin 3.8 g/dL (2.4-3.5); Glucose 78 mg/dL (80-115); Potassium 4.5 mmol/L (3.5-5.1); Protein, Total 7.8 g/dL (5.8-8.1); Sodium 136 mmol/L (136-145)
[2020-03-08 17:02] LABS: CKMB 1.3 ng/mL (0-6.6)
[2020-03-08 19:59] LABS: Troponin I 0.058 ng/mL (< 0.028)
--- NOTE | 2020-03-08 20:08 | PDOC.HHP ---
Hospitalist HPI - History of Present Illness chest pain History of Present Illness: PCP: [place], ([place]) The patient is a 64-year-old male with a past medical history significant for NC (early ), HTN and HLD that presents to the emergency department via EMS for the above complaint. The patient reports the acute onset of substernal chest pain at approximately 1 PM this afternoon. The pain is located substernally, described as sharp, constant, exacerbated and relieved by nothing. The patient reports that he has had similar episodes several times in the past couple years. He reports that this pain was more intense than his previous other episodes. The pain occurred while at rest, he was sitting down at home in a chair. EMS was called. Documented EKG showed ST elevation in leads II, III and aVF. However, cardiology was consulted by ER MD and it was determined that the EKG was consistent with a non-STEMI. The patient was given full dose aspirin, Nitropaste and fentanyl. His chest pain improved from a 10/10 pain scale to a 6/10 pain scale. He has no history of COPD/asthma. No history of DVT/PE. He has no history of illicit drug use. He denies any heart palpitations, lightheadedness or swelling to his lower extremities. He denies any shortness of breath, hemoptysis or wheezing. Denies any abdominal pain, nausea, vomiting, hematochezia/melena. He denies any dysuria or hematuria. He denies any recent fever or illness. He has no known sick contacts. ED Course: VITAL SIGNS [facility] Mar 08, 2020 15:26 DARCY Ramos Cheryl Pulse: 92, Resp: 21, Pain: 6, O2 sat: 100 on (Room Air), Time: 03/08/2020 15:26. VITAL SIGNS [facility] Mar 08, 2020 15:31 DARCY Ramos Cheryl BP: 101/60, Pulse: 74, Resp: 21, O2 sat: 98, Time: 03/08/2020 15:31. VITAL SIGNS [facility] Mar 08, 2020 16:36 DARCY Ramos Cheryl BP: 112/65, MAP: 80, Pulse: 66, Resp: 21, Temp: 98.3 (Oral), Pain: 4, O2 sat: 99 on (Room Air), Time: 03/08/2020 16:36. VITAL SIGNS [facility] Mar 08, 2020 17:42 DARCY Jones Melanie BP: 102/62, Pulse: 83, Resp: 18, Pain: 3, O2 sat: 99 on (Room Air), Time: 03/08/2020 17:42. VITAL SIGNS [facility] Mar 08, 2020 18:30 DARCY Jones Melanie BP: 114/73, Pulse: 72, Resp: 20, Pain: 3, O2 sat: 100 on (Room Air), Time: 03/08/2020 18:30. VITAL SIGNS [facility] Mar 08, 2020 19:51 DARCY Jones Melanie BP: 126/81, Pulse: 74, Resp: 28, Pain: 3, O2 sat: 96 on (Room Air), Time: 03/08/2020 19:51. Medications: None Hospitalist ROS - Review of Systems All other systems reviewed; all pertinent +/- noted in HPI/Subj - Medication Medications: sertraline [facility] Mar 08, 2020 15:41 DARCY Ramos Cheryl TABLET : Strength - 100 mg : ORAL Patient Dose: 150 mg Oral once a day (at bedtime). losartan [facility] Mar 08, 2020 15:43 DARCY Ramos Cheryl tablet : Strength - 50 mg : ORAL Patient Dose: 1 tab(s) Oral once a day. Allergies: No known drug allergies Hospitalist History - Past Medical History Source: patient, RN notes reviewed Cardiac: reports: HTN, NC ((Early )), Hyperlipidemia (Noncompliant with medication regimen) Heme/Onc: reports: Cancer (Colon cancer status post colon resection (2006)) Psych: reports: Depression - Past Surgical History Past Surgical History: reports: Other (Colon resection (2006), left rotator cuff, hiatal hernia) - Family History Family History: reports: cardiac disorder (MotherMI unknown age) - Social History Smoking Status: Never smoker Alcohol: reports: None Drugs: reports: none Living Situation: With Family Occupation: Disabled Activity level: independent ambulation - Exam General Appearance: NAD, awake alert. negative: ill appearing Eye: anicteric sclera ENT: normocephalic atraumatic Neck: supple Heart: RRR, no murmur, no gallops, no rubs, normal peripheral pulses Respiratory: CTAB, no wheezes, no rales, no ronchi, normal chest expansion, no tachypnea Gastrointestinal: soft, non-tender, normal bowel sounds, no guarding, no rigi dity, distended Gastrointestinal - other findings: Negative Rovsing sign, negative South sign Extremities: no cyanosis, no edema Skin: no rashes Neurological: no focal deficits Musculoskeletal: normal tone, normal strength Psychiatric: normal affect, A&O x 3 Hospitalist Results - Labs Result Diagrams: 03/08/20 15:32 03/08/20 15:32 Lab results: WBC 10.2 thou/uL (4.8-10.8) 03/08/20 15:32 Hgb 13.4 g/dL (14.0-18.0) L 03/08/20 15:32 Hct 39.9 % (42.0-52.0) L 03/08/20 15:32 MCV 82.7 fL (78.0-98.0) 03/08/20 15:32 Plt Count 198 thou/uL (130-400) 03/08/20 15:32 Neutrophils % 78.3 % (42.0-75.0) H 03/08/20 15:32 Sodium 136 mmol/L (136-145) 03/08/20 15:32 Potassium 4.5 mmol/L (3.5-5.1) 03/08/20 15:32 Chloride 101 mmol/L (98-107) 03/08/20 15:32 Carbon Dioxide 24 mmol/L (23-31) 03/08/20 15:32 BUN 11 mg/dL (8.4-25.7) 03/08/20 15:32 Creatinine 1.21 mg/dL (0.7-1.3) 03/08/20 15:32 Glucose 78 mg/dL (80-115) L 03/08/20 15:32 Calcium 8.7 mg/dL (7.8-10.44) 03/08/20 15:32 Total Bilirubin 0.8 mg/dL (0.2-1.2) 03/08/20 15:32 AST 23 U/L (5-34) 03/08/20 15:32 ALT 14 U/L (8-55) 03/08/20 15:32 Alkaline Phosphatase 84 U/L (40-110) 03/08/20 15:32 Creatine Kinase 151 U/L (30-200) 03/08/20 15:32 CK-MB (CK-2) 1.3 ng/mL (0-6.6) 03/08/20 15:32 Troponin I 0.058 ng/mL (< 0.028) H 03/08/20 19:26 B-Natriuretic Peptide Less than 10.0 pg/mL (0-100) 03/08/20 15:32 Serum Total Protein 7.8 g/dL (5.8-8.1) 03/08/20 15:32 Albumin 4.0 g/dL (3.4-4.8) 03/08/20 15:32 - EKG Interpretation EK lead EKG interpreted by Emergency Department Physician at time of study, 12 lead EKG shows normal sinus rhythm, Rate (beats per minute): 98, with no ectopics, Interpretation:, Conduction normal, ST, elevation, in lead II, in lead III, in aVf, T waves, Wilson normal, Clinical impression:, non-specific EKG. - Radiology Interpretation Chest x-ray Status: report reviewed by me Additional Comment: IMPRESSION: No acute cardiopulmonary process. Hospitalist H&P A/P - Problem (1) NSTEMI (non-ST elevated myocardial infarction) Code(s): I21.4 - NON-ST ELEVATION (NSTEMI) MYOCARDIAL INFARCTION Status: Acute (2) Elevated troponin Code(s): R77.8 - OTHER SPECIFIED ABNORMALITIES OF PLASMA PROTEINS Status: Acute (3) Hypertension Code(s): I10 - ESSENTIAL (PRIMARY) HYPERTENSION Status: Chronic (4) Hyperlipidemia Code(s): E78.5 - HYPERLIPIDEMIA, UNSPECIFIED Status: Chronic (5) Obesity Code(s): E66.9 - OBESITY, UNSPECIFIED Status: Chronic (6) Depression Code(s): F32.9 - MAJOR DEPRESSIVE DISORDER, SINGLE EPISODE, UNSPECIFIED Status: Chronic (7) History of colon cancer Code(s): Z85.038 - PERSONAL HISTORY OF MALIGNANT NEOPLASM OF LARGE INTESTINE Status: Chronic - Plan Plan: 64/M with PMH NC, HTN, HLD, obesity presents for chest pain. Admit to telemetry floor, observation status. Expected length of stay less than 2 midnights. EMS reported EKG ST elevations to lead 2, 3, aVF. ER MD consulted cardiology, determined NSTEMI. Initial troponin 0.071, 0.058, BNP less than 10 CXR no acute process. CMP and CBC unremarkable Given full dose aspirin, Nitropaste, fentanyl with relief of symptoms. #NSTEMI Heart score 7 Symptoms relieved by nitropaste, ASA and fentanyl Trend troponins, check TSH, mag, FLP Continue aspirin Nitropaste Start beta-ruiz and high intensity statin N.p.o. library monitor. Morphine as needed #Elevated troponin Likely related to problem #1. #Hypertension Presented normotensive. Restart home dose losartan when reconciled by nursing. #Hyperlipidemia Noncompliant. Start high intensity statin. Check FLP. #Obesity Dietary restrictions. #Depression Denies SI/HI. Takes sertraline. Restart home dose sertraline. #History of colon cancer Status post colon resection (2006). SCDs for DVT prophylaxis. No GI prophylaxis. CODE STATUS is full code. Discussed the case with attending physician, Dr. Ellington, who agrees with plan of care.
[2020-03-08] MEDS ORDERED: Nitroglycerin 0.4 MG TAB (25 Tab Bottle) SL PRN (20:33)
[2020-03-08] MEDS ORDERED: Morphine 2 MG/ML VIAL SLOW IVP PRN (20:37)
[2020-03-08] MEDS ORDERED: Calcium Carbonate 500 MG ChewTAB PO PRN (20:38)
[2020-03-08] MEDS ORDERED: Acetaminophen 325 MG TAB PO PRN (20:38)
[2020-03-08] MEDS ORDERED: Ondansetron ODT 4 MG TAB PO PRN (20:38)
[2020-03-08] MEDS ORDERED: Ondansetron PF 4 MG/2 ML Vial IVP PRN (20:38)
[2020-03-08] MEDS ORDERED: Senokot S 8.6-50 MG TAB PO PRN (20:38)
[2020-03-08] MEDS ORDERED: Carvedilol 6.25 MG TAB PO SCH (20:45)
[2020-03-08 21:36] LABS: Magnesium 1.9 mg/dL (1.6-2.6)
[2020-03-08] MEDS: Nitroglycerin 2% Ointment 1 INCH/1 GM Packet TOP SCH (22:55)
[2020-03-08 23:22] LABS: Troponin I 0.084 ng/mL (< 0.028)
[2020-03-08] MEDS ORDERED: Sodium Chloride 0.9% 1,000 ML IV SCH (23:59)
[2020-03-09] MEDS: Atorvastatin Calcium 40 MG TAB PO SCH ×2 (05:08→21:30)
[2020-03-09] MEDS: Nitroglycerin 2% Ointment 1 INCH/1 GM Packet TOP SCH (05:09)
[2020-03-09] MEDS ORDERED: Morphine 4 MG/ML VIAL ONE (05:18)
[2020-03-09 05:42] VITALS: BMI 36.6
[2020-03-09 05:52] LABS: SARS-CoV-2 PCR by NAA Not Detected (NotDetected)
[2020-03-09 06:45] LABS: #Eosinphils 0.2 thou/uL (0.0-0.7); #Lymphocytes 0.8 thou/uL (1.20-3.40); #Monocytes 0.9 thou/uL (0.11-0.59); #Neutrophils 5.6 thou/uL (1.40-6.50); %Basophils 0.2 % (0.0-1.0); %Eosinophils 2.1 % (0.0-10.0); %Lymphocytes 10.5 % (21.0-51.0); %Monocytes 12.1 % (0.0-10.0); %Neutrophils 75.2 % (42.0-75.0); Hemoglobin 12.3 g/dL (14.0-18.0); Mean Corpuscular HGB CONC 32.7 g/dL (32.0-36.0); Mean Corpuscular Hemoglobin 26.9 pg (27.0-31.0); Mean Corpuscular Volume 82.3 fL (78.0-98.0); Mean Platelet Volume 8.4 fL (7.4-10.4); Platelet Count 191 thou/uL (130-400); RBC Distribution Width 12.1 % (11.5-14.5); Red Blood Cell (RBC) Count 4.57 mill/uL (4.70-6.10); White Blood Cell (WBC) Count 7.5 thou/uL (4.8-10.8)
[2020-03-09 07:01] LABS: Anion Gap 13 mmol/L (10-20); BUN (Urea Nitrogen) 11 mg/dL (8.4-25.7); Calc. Creatinine Clearance 137 mL/min (70-130); Calcium 8.6 mg/dL (7.8-10.44); Carbon Dioxide 25 mmol/L (23-31); Cardiac Risk 4.4 (Less than 4.5); Chloride 104 mmol/L (98-107); Cholesterol 153 mg/dl (< 200 Desired); Glucose 99 mg/dL (80-115); HDL Cholesterol 35 mg/dL (>60 Neg Risk); LDL Cholesterol, Calculated 100 mg/dL; Sodium 138 mmol/L (136-145); Triglycerides 90 mg/dL (Less than 150)
[2020-03-09] MEDS ORDERED: Carvedilol 3.125 MG TAB PO SCH (08:00)
[2020-03-09] MEDS: Aspirin Chewable 81 MG TAB PO SCH (09:24)
[2020-03-09] MEDS ORDERED: Aspirin Chewable 81 MG TAB PO SCH (10:16)
[2020-03-09] MEDS ORDERED: Nitroglycerin 2% Ointment 1 INCH/1 GM Packet TOP SCH (10:17)
[2020-03-09] MEDS ORDERED: Iopamidol 370 76% 100 ML VIAL ONE (10:22)
[2020-03-09] MEDS ORDERED: Communication Order-Pharmacy FS SCH (10:30)
[2020-03-09] MEDS ORDERED: Aspirin Chewable 81 MG TAB ONE (10:35)
[2020-03-09] MEDS ORDERED: Nitroglycerin 2% Ointment 1 INCH/1 GM Packet ONE (10:35)
--- NOTE | 2020-03-09 11:15 | CON ---
DATE OF CONSULTATION: 03/09/2020 REASON FOR CONSULTATION: Non-ST elevation myocardial infarction. HISTORY OF PRESENT ILLNESS: Mr. Nacho Nickerson is a 64-year-old gentleman, who has been having chest pain and pressure for the last 2 days. It is occurring primarily at rest. He came here to the emergency room yesterday, found to have increased troponin levels. He continued to have chest pain and pressure off and on. The pain is in the middle of his chest, typical of angina, a pressure sensation. During my interview with him, he was having intermittent pressure in his chest that was mild but present. PAST HISTORY: The patient states that he was told that he had a heart attack in the early , but he said he was in [place] and he does not recall being sent to [place]. He does not recall having a heart catheterization. He has a history of hypertension. He said he has not been compliant with the medication regimen. MEDICATIONS: Prescribed medicines at home 1. Losartan. 2. Sertraline. REVIEW OF SYSTEMS: CONSTITUTIONAL: No significant weight gain or loss. VISION: No changes. HEARING: No changes. PULMONARY: No cough or wheezing GASTROINTESTINAL: No nausea, vomiting, diarrhea. SKIN: No rashes. NEUROLOGIC: No unilateral weakness or numbness. PSYCHIATRIC: No unusual depression or anxiety. ALLERGIES: NONE KNOWN. SOCIAL HISTORY: Does not smoke or abuse alcohol. PHYSICAL EXAMINATION: GENERAL: This is a pleasant 64-year-old gentleman, 6 feet tall, 269 pounds. HEENT: Eyes, sclerae nonicteric. Mouth, mucous membranes moist. NECK: Supple. No lymphadenopathy. LUNGS: Clear. CARDIAC: Normal S1, normal S2. There is no murmur, rub, or gallop. ABDOMEN: Obese, nontender. EXTREMITIES: No clubbing or cyanosis. There is no edema. Peripheral pulses are present and easily palpable. EKG: They were unable to find the initial EKG for me, but they printed off a copy that showed there was no significant ST changes in the limb leads, the chest leads only V1 through V3 were seen, but there was no evidence of ST elevation in those leads. PERTINENT LABORATORY DATA: Troponin level 0.084. LDL cholesterol is 100. Blood sugar is 99. ASSESSMENT: 1. Non-ST elevation infarction with intermittent chest pressure ongoing. 2. Hypotensive earlier this morning in the emergency room. PLAN: Proceed to cardiac catheterization. Discussed the risks of catheterization, stroke, heart attack, iodine allergy, loss of blood flow to the leg or kidney, stent thrombosis, stent restenosis, emergency bypass surgery discussed. The patient understands and wishes to proceed. Job ID: [id number]
[2020-03-09] MEDS ORDERED: Fentanyl 100 MCG/2 ML VIAL ONE (11:32)
[2020-03-09] MEDS ORDERED: Midazolam HCl 2 mg/2 ml Vial ONE (11:32)
[2020-03-09] MEDS ORDERED: Metoprolol Tartrate 5 MG/5 ML VIAL ONE (12:06)
[2020-03-09] MEDS ORDERED: Nitroglycerin 0.4 MG TAB (25 Tab Bottle) SL PRN (12:13)
[2020-03-09] MEDS ORDERED: Sodium Chloride 0.9% 200 ML IV PRN (12:13)
[2020-03-09] MEDS ORDERED: Acetaminophen/Codeine 30-300mg Tablet PO PRN ×2 (12:13)
--- NOTE | 2020-03-09 16:31 | PDOC.HOSPP ---
- Subjective Encounter Date: 03/09/20 Encounter Time: 16:00 Subjective: Patient seen and examined for chest discomfort which is resolved. Denies any nausea, vomiting or palpitations. No fever or chills reported - Objective Vital Signs & Weight: Vital Signs (12 hours) Temp Pulse Resp BP BP Pulse Ox 03/09/20 15:43 85 20 117/56 L 99 03/09/20 13:20 98.1 F 68 18 127/78 98 03/09/20 06:03 77 18 117/70 100 03/09/20 05:23 98.2 F 87 18 120/81 100 Weight Weight 269 lb 13.533 oz I&O: 03/08/20 03/09/20 03/10/20 06:59 06:59 06:59 Intake Total 300 Balance 300 Result Diagrams: 03/09/20 06:28 03/09/20 06:28 Additional Labs: Abnormal Lab Results - Last 48 hrs 03/08/20 15:32: Globulin 3.8 H, Albumin/Globulin Ratio 1.1 L 03/08/20 15:32: Troponin I 0.071 H 03/08/20 15:32: Hgb 13.4 L, Hct 39.9 L, Neutrophils % 78.3 H, Lymphocytes % 10.6 L, Neutrophils # 8.0 H, Lymphocytes # 1.1 L, Monocytes # 0.9 H 03/08/20 19:26: Troponin I 0.058 H 03/08/20 22:47: Troponin I 0.084 H 03/09/20 06:28: RBC 4.57 L, Hgb 12.3 L, Hct 37.6 L, MCH 26.9 L, Neutrophils % 75.2 H, Lymphocytes % 10.5 L, Monocytes % 12.1 H, Lymphocytes # 0.8 L, Monocytes # 0.9 H Radiology Reviewed by me: Yes (Chest x-rayno infiltrate) EKG Reviewed by me: Yes (Sinus rhythm on telemetry) Hospitalist ROS - Review of Systems Respiratory: denies: cough, dry, shortness of breath, hemoptysis, SOB with excertion, pleuritic pain, sputum, wheezing, other Gastrointestinal: denies: nausea, vomiting, abdominal pain, diarrhea, constipation, melena, hematochezia, other - Medication Medications: Active Medications Generic Name Dose Route Start Last Admin Trade Name Freq PRN Reason Stop Dose Admin Aspirin 81 mg 03/09/20 09:00 03/09/20 09:24 Aspirin Chewable 81 Mg Tab PO Not Given DAILY [facility] Atorvastatin Calcium 40 mg 03/08/20 21:00 03/09/20 05:08 Atorvastatin Calcium 40 Mg Tab PO Not Given HS [facility] Morphine Sulfate 2 mg 03/08/20 20:37 03/09/20 05:22 Morphine 2 Mg/Ml Vial SLOW IVP 2 mg Q4H PRN Administration Breakthrough Pain - Exam General Appearance: awake alert Neck: supple, symmetric, no JVD, no thyromegaly Heart: RRR, no gallops, no rubs, normal peripheral pulses Respiratory: no wheezes, no rales, no ronchi, normal chest expansion Gastrointestinal: soft, non-tender, non-distended, normal bowel sounds, no guarding, no rigidity Extremities: no cyanosis, no clubbing, no edema Neurological: no new deficit Psychiatric: normal affect, A&O x 3 Hosp A/P - Plan DVT proph w/SCDs Chest pain Nonischemic cardiomyopathy with ejection fraction of 40% (chronic systolic heart failure) Hypertension Hyperlipidemia Obesity with a BMI of 36.6 Anxiety History of colon cancer Chronic anemia suspected due to nutritional deficiency CKD stage II Plan: Patient denies any chest discomfort at this time. Vital signs remained stable. He underwent cardiac catheterization earlier today and that showed normal coronary arteries with left ventricular ejection fraction of 40% with mild global hypokinesis. Will monitor patient overnight per cardiology recommendation. Continue statins with WINNIE inhibitor. Carvedilol dose increased to 6.25 mg twice daily. Nitroglycerin patch discontinued. Continue other medications as above
[2020-03-09] MEDS ORDERED: Electrolyte Replacement Protocol 1 EACH FS SCH (16:45)
[2020-03-09] MEDS ORDERED: Electrolyte Replacement Protocol FS PRN (17:00)
[2020-03-09] MEDS: Carvedilol 6.25 MG TAB PO SCH (17:50)
[2020-03-10] MEDS: Carvedilol 6.25 MG TAB PO SCH (08:30)
[2020-03-10] MEDS: Aspirin Chewable 81 MG TAB PO SCH (08:31)
[2020-03-10] MEDS ORDERED: FLU VACC QS2020-21(6MOS UP)/PF 60 MCG/0.5 ML SYRINGE IM ONE (09:00)
[2020-03-10] MEDS ORDERED: Lisinopril 5 MG TAB PO SCH (09:00)
[2020-03-10 11:15] VITALS: TEMP 98.3
--- NOTE | 2020-03-10 11:45 | PRG ---
DATE OF SERVICE: 03/10/2020 SUBJECTIVE: Mr. Nickerson is doing well. No chest pain or pressure. He is resting comfortably. OBJECTIVE: VITAL SIGNS: Blood pressure 123/61; pulse 80, regular. LUNGS: Clear. CARDIAC: Normal S1, normal S2. ABDOMEN: Soft, nontender. ASSESSMENT: 1. Riwp-cb-clzorpys cardiomyopathy, ejection fraction of 40%. 2. Normal coronary arteries. 3. Hypertension. PLAN: 1. Lisinopril 10 mg a day. 2. Carvedilol 6.25 mg twice a day. 3. See us in the office within 3 to 4 weeks, at which time, the carvedilol should be increased to 12.5 mg twice a day. 4. Okay to be released home. 5. He is also on low-dose aspirin, although we can probably eventually stop that as he has no evidence of coronary artery disease and atorvastatin 40 mg a day. Job ID: [id number]
[2020-03-10 11:46] VITALS: BP 118/58
--- NOTE | 2020-03-10 12:18 | EKG ---
Test Reason : Blood Pressure : / mmHG Vent. Rate : 098 BPM Atrial Rate : 098 BPM P-R Int : 186 ms QRS Dur : 094 ms QT Int : 366 ms P-R-T Axes : 000 -10 063 degrees QTc Int : 467 ms Poor data quality, interpretation may be adversely affected Normal sinus rhythm Nonspecific T wave abnormality Prolonged QT Abnormal ECG Confirmed by NALDO MILLER DO ([id number]), photograph editor JESSE MAURO ([id number]) on 03/10/2020 12:18:38 PM Referred By: Confirmed By:NALDO MILLER DO
--- NOTE | 2020-03-10 18:13 | PDOC.DS.DS ---
Provider - Provider Date of Admission: 03/08/20 18:47 Date of Discharge: 03/10/20 Admitting Provider: Alyssa Ellington MD Consultations: Cardiology Primary Care Physician: NO PCP PROVIDER Course - Hospital Course Hospital Course: Patient is 64-year-old male with hypertension, hyperlipidemia and TX in the past presented to the emergency room with chest discomfort on 03/08. He was found to have indeterminate troponins with nonspecific ST-T wave changes on the EKG. Please refer to the history and physical for further details. Patient was admitted to the hospital with a diagnosis of chest discomfort with indeterminate troponins. He was evaluated by cardiology Dr. Andre. Due to concern for coronary artery disease he underwent cardiac catheterization on 03/09 that showed large normal coronary arteries with ejection fraction of 40% with mild global hypokinesis. Due to low ejection fraction he was monitored overnight. An echocardiogram confirmed the ejection fraction of 40%. He has been started on lisinopril as well as carvedilol. He was advised to follow-up with cardiology as outpatient. He was counseled on congestive heart failure. Final diagnosis: Chest pain Nonischemic cardiomyopathy with ejection fraction of 40% (chronic systolic heart failure) Hypertension Hyperlipidemia Obesity with a BMI of 36.6 Anxiety History of colon cancer Chronic anemia suspected due to nutritional deficiency CKD stage II Resuscitation Status: 03/08/20 20:38 Resuscitation Status Routine Co-Sign Provider: Resuscitation Status: FULL: Full Resuscitation Discussed with: patient - Labs Lab Results: 03/09/20 06:28 03/09/20 06:28 Abnormal Lab Results - Last 48 hrs 03/08/20 19:26: Troponin I 0.058 H 03/08/20 22:47: Troponin I 0.084 H 03/09/20 06:28: RBC 4.57 L, Hgb 12.3 L, Hct 37.6 L, MCH 26.9 L, Neutrophils % 75.2 H, Lymphocytes % 10.5 L, Monocytes % 12.1 H, Lymphocytes # 0.8 L, Monocytes # 0.9 H - Physical Exam Vitals: Vital Signs (12 hours) Temp Pulse Pulse Pulse Resp BP BP 03/10/20 11:19 75 76 118/58 L 120/78 03/10/20 11:15 98.3 F 83 16 03/10/20 07:45 98.0 F 83 16 BP Pulse Ox 03/10/20 11:19 03/10/20 11:15 123/61 95 03/10/20 07:45 111/67 97 Weight Weight 271 lb 9.6 oz Physical Exam: The patient was seen and examined on the day of discharge. Plan - Discharge Medications Prescriptions: Carvedilol [Coreg] 6.25 mg PO BID-WM #60 tab Lisinopril 10 mg PO DAILY #30 tablet Home Medications: Medication Instructions Recorded Confirmed Type Sertraline HCl 1.5 tab PO DAILY 01/31/18 03/09/20 History Carvedilol [Coreg] 6.25 mg PO BID-WM #60 tab 03/10/20 Rx Lisinopril 10 mg PO DAILY #30 tablet 03/10/20 Rx Allergies: No Known Drug Allergies Allergy (Verified 03/09/20 05:42) - Follow up Plan Referrals: Cardiac Rehab - [place] [Outside] - 3 Days (Your doctor has ordered outpatient cardiac rehab for you to begin within 1-2 weeks after you go home from the hospital. The location nearest to you is the [facility]. The front office in [place] will call you in 1-2 days to get you scheduled for your evaluation. If you do not receive a call, please reach out to them at [phone] and request an appointment. Should you have any trouble or need assistance, please call the cardiac rehab main line in [place] at [phone]. ) [facility] [MD Not on Staff] - 3 Days (Please follow-up within 3 days.) Kathy Andre MD [Active] - 14 Days (Please follow-up within 14 days.) Disposition: HOME Quality - Care Measures CORE MEASURES:: N/A
[2020-03-11] MEDS ORDERED: Lisinopril 5 MG TAB PO SCH (09:00)
== END 2020-03-10 14:32 | disposition home or self-care (01) ==
LOC: ERS 15:19 → ERHOLD 18:47 → 2NO 03-09 13:21
PROVIDERS: ADMIT Internal Medicine; ATTEND Internal Medicine
PROC: 4A023N7 Measurement of Cardiac Sampling and Pressure, Left Heart, Percutaneous Approach (ICD-10-PCS; principal; 2020-03-09)
PROC: B2111ZZ Fluoroscopy of Multiple Coronary Arteries using Low Osmolar Contrast (ICD-10-PCS; 2020-03-09)
DX: R07.89 Other chest pain (principal); I42.8 Other cardiomyopathies; I13.0 Hypertensive heart and chronic kidney disease with heart failure and stage 1 through stage 4 chronic kidney disease, or unspecified chronic kidney disease; N18.2 Chronic kidney disease, stage 2 (mild); I50.22 Chronic systolic (congestive) heart failure; E78.5 Hyperlipidemia, unspecified; F41.9 Anxiety disorder, unspecified; D53.9 Nutritional anemia, unspecified; I25.2 Old myocardial infarction; E78.00 Pure hypercholesterolemia, unspecified; E66.9 Obesity, unspecified; F32.9 Major depressive disorder, single episode, unspecified; I95.9 Hypotension, unspecified; Z68.36 Body mass index [BMI] 36.0-36.9, adult; Z85.038 Personal history of other malignant neoplasm of large intestine; Z91.14 Patient's other noncompliance with medication regimen; Z79.899 Other long term (current) drug therapy; Z90.49 Acquired absence of other specified parts of digestive tract; Z20.822 Contact with and (suspected) exposure to COVID-19
CPT/HCPCS: 36415; 71045; 76942; 80048; 80053; 80061; 82550; 82553; 83690; 83735; 83880; 84443; 84484; 85025; 87635; 93005; 93306; 93458; 93798; 94760; 96374; 99152; 99153; G0378; J1644; J2250; J2270; J3010; Q9967; U0003; U0005

== ENCOUNTER 2023-05-18 19:26 | Inpatient (IN) | payer MEDICARE, MEDICAID ==
[2023-05-18 21:17] VITALS: BMI 37.2
[2023-05-18] MEDS ORDERED: Ondansetron PF 4 MG/2 ML Vial IVP PRN (21:35)
[2023-05-18] MEDS ORDERED: Ondansetron ODT 4 MG TAB PO PRN (21:35)
[2023-05-18] MEDS ORDERED: Acetaminophen 650 MG Suppository PR PRN (21:35)
[2023-05-18] MEDS ORDERED: Electrolyte Replacement Protocol FS SCH (22:00)
[2023-05-18 23:02] LABS: Anion Gap 16 mmol/L (10-20); BUN (Urea Nitrogen) 10 mg/dL (8.4-25.7); Calc. Creatinine Clearance 134 mL/min (70-130); Calcium 9.6 mg/dL (7.8-10.44); Carbon Dioxide 22 mmol/L (23-31); Chloride 106 mmol/L (98-107); Estimated GFR 86; Glucose 86 mg/dL (80-115); Magnesium 2.1 mg/dL (1.6-2.6); Potassium 3.7 mmol/L (3.5-5.1); Sodium 140 mmol/L (136-145)
[2023-05-18 23:19] LABS: Critical Call Chem Troponin I NUR.SM15@2318; Troponin I 0.227 ng/mL (< 0.028)
[2023-05-19] MEDS: Acetaminophen 325 MG TAB PO PRN (04:43)
[2023-05-19] MEDS ORDERED: Ketorolac Tromethamine 30 MG (1 mL) VIAL IVP SCH (05:00)
[2023-05-19] MEDS ORDERED: Morphine 4 MG/ML VIAL SLOW IVP PRN (05:08)
[2023-05-19 05:26] LABS: #Basophils 0.05 10x3/uL (0.0-0.2); %Basophils 0.8 % (0.0-1.0); %Eosinophils 2.9 % (0.0-10.0); %Monocytes 9.4 % (0.0-10.0); %Neutrophils 65.7 % (42.0-75.0); Anion Gap 14 mmol/L (10-20); BUN (Urea Nitrogen) 10 mg/dL (8.4-25.7); Calc. Creatinine Clearance 136 mL/min (70-130); Calcium 9.6 mg/dL (7.8-10.44); Carbon Dioxide 23 mmol/L (23-31); Chloride 106 mmol/L (98-107); Estimated GFR 87; Glucose 92 mg/dL (80-115); Hematocrit 41.5 % (42.0-52.0); Hemoglobin 14.1 g/dL (14.0-18.0); Magnesium 2.1 mg/dL (1.6-2.6); Mean Corpuscular Volume 82.3 fL (78.0-98.0); Mean Platelet Volume 10.9 fL (7.4-10.4); Platelet Count 219 10x3/uL (130-400); Potassium 3.8 mmol/L (3.5-5.1); RBC Distribution Width 13.8 % (11.5-14.5); Red Blood Cell (RBC) Count 5.04 mill/uL (4.70-6.10); Sodium 139 mmol/L (136-145)
[2023-05-19] MEDS: Furosemide 40 MG (4 mL) VIAL SLOW IVP SCH (10:00)
[2023-05-19] MEDS: Carvedilol 3.125 MG TAB PO SCH (16:37)
[2023-05-19] MEDS: Empagliflozin 10 MG TAB PO SCH ×2 (16:38)
[2023-05-19] MEDS: Sacubitril 24MG/Valsartan 26 MG TAB PO SCH (19:48)
[2023-05-20 06:19] LABS: Anion Gap 10 mmol/L (10-20); BUN (Urea Nitrogen) 14 mg/dL (8.4-25.7); Calc. Creatinine Clearance 113 mL/min (70-130); Calcium 9.6 mg/dL (7.8-10.44); Carbon Dioxide 28 mmol/L (23-31); Chloride 102 mmol/L (98-107); Estimated GFR 69; Glucose 106 mg/dL (80-115); Magnesium 2.2 mg/dL (1.6-2.6); Potassium 3.6 mmol/L (3.5-5.1); Sodium 136 mmol/L (136-145)
[2023-05-20] MEDS: Empagliflozin 10 MG TAB PO SCH (10:18)
[2023-05-20] MEDS: Potassium Chloride 20 MEQ TAB PO SCH (11:01)
[2023-05-20] MEDS: Carvedilol 6.25 MG TAB PO SCH ×2 (11:01→16:28)
[2023-05-20] MEDS ORDERED: Carvedilol 3.125 MG TAB PO SCH (17:00)
[2023-05-20] MEDS: Sacubitril 24MG/Valsartan 26 MG TAB PO SCH (20:41)
[2023-05-21 05:41] LABS: Anion Gap 15 mmol/L (10-20); BUN (Urea Nitrogen) 20 mg/dL (8.4-25.7); Calc. Creatinine Clearance 97 mL/min (70-130); Calcium 9.3 mg/dL (7.8-10.44); Carbon Dioxide 20 mmol/L (23-31); Chloride 104 mmol/L (98-107); Estimated GFR 59; Glucose 127 mg/dL (80-115); Potassium 3.8 mmol/L (3.5-5.1); Sodium 135 mmol/L (136-145)
[2023-05-21 16:26] VITALS: BP 89/52; TEMP 98.1
[2023-05-21] MEDS: Potassium Chloride 20 MEQ TAB PO SCH (16:43)
[2023-05-21] MEDS ORDERED: FLU VACC QS2023(65UP)/MF59C/PF 60 MCG/0.5 ML SYRINGE IM ONE (21:15)
[2023-05-22] MEDS ORDERED: Aspirin 81 mg Enteric Coated Tablet PO SCH (09:00)
[2023-05-22] MEDS ORDERED: Furosemide 20 MG TAB PO SCH (09:00)
== END 2023-05-21 18:24 | disposition home or self-care (01) | DRG 917 ==
LOC: 2SW 20:35 → OBSVTOIN 05-19 11:36
PROVIDERS: ADMIT Student in an Organized Health Care Education/Training Program; ATTEND Family Medicine
DX: T40.5X1A Poisoning by cocaine, accidental (unintentional), initial encounter (principal); I21.A1 Myocardial infarction type 2; I50.23 Acute on chronic systolic (congestive) heart failure; I47.20 Ventricular tachycardia, unspecified; I11.0 Hypertensive heart disease with heart failure; F32.A Depression, unspecified; F14.10 Cocaine abuse, uncomplicated; I25.5 Ischemic cardiomyopathy; E87.6 Hypokalemia; Z85.038 Personal history of other malignant neoplasm of large intestine; Z93.3 Colostomy status; Z95.0 Presence of cardiac pacemaker; Z79.899 Other long term (current) drug therapy
CPT/HCPCS: 36415; 80048; 83735; 85025; 93306; 93798; J1940

== ENCOUNTER 2024-04-13 19:10 | Observation (INO) | payer OTHER ==
[2024-04-13] MEDS ORDERED: Ondansetron PF 4 MG/2 ML Vial IVP PRN (21:41)
[2024-04-13] MEDS ORDERED: Acetaminophen 650 MG Suppository PR PRN (21:41)
[2024-04-13] MEDS ORDERED: Ondansetron ODT 4 MG TAB PO PRN (21:41)
[2024-04-13] MEDS ORDERED: Calcium Carbonate 500 MG ChewTAB PO PRN (21:41)
[2024-04-13 22:54] LABS: Troponin I 0.097 ng/mL (< 0.028)
[2024-04-13] MEDS: Acetaminophen 325 MG TAB PO PRN (23:15)
[2024-04-13 23:29] VITALS: BMI 37.3
[2024-04-14 01:33] LABS: Troponin I 0.102 ng/mL (< 0.028)
[2024-04-14 06:43] LABS: #Basophils 0.05 10x3/uL (0.0-0.2); %Basophils 0.7 % (0.0-1.0); %Eosinophils 2.7 % (0.0-10.0); %Lymphocytes 20.6 % (21.0-51.0); %Monocytes 10.4 % (0.0-10.0); %Neutrophils 65.3 % (42.0-75.0); Hematocrit 39.8 % (42.0-52.0); Hemoglobin 13.4 g/dL (14.0-18.0); Mean Corpuscular HGB CONC 33.7 g/dL (32.0-36.0); Mean Corpuscular Hemoglobin 27.5 pg (27.0-31.0); Mean Corpuscular Volume 81.6 fL (78.0-98.0); Mean Platelet Volume 11.3 fL (7.4-10.4); Platelet Count 218 10x3/uL (130-400); RBC Distribution Width 13.4 % (11.5-14.5); Red Blood Cell (RBC) Count 4.88 mill/uL (4.70-6.10)
[2024-04-14 07:07] LABS: ALT (SGPT) 17 U/L (Less than 45); AST (SGOT) 20 U/L (11-34); Albumin 3.6 g/dL (3.1-4.5); Alkaline Phosphatase 57 U/L (40-110); Anion Gap 12 mmol/L (10-20); BUN (Urea Nitrogen) 14 mg/dL (8.4-25.7); Bilirubin, Total 1.4 mg/dL (0.3-1.2); Calc. Creatinine Clearance 141 mL/min (70-130); Carbon Dioxide 25 mmol/L (23-31); Chloride 107 mmol/L (98-107); Estimated GFR 92; Globulin 3.2 g/dL (2.4-3.5); Glucose 85 mg/dL (80-115); Magnesium 2.2 mg/dL (1.6-2.6); Potassium 4.1 mmol/L (3.5-5.1); Protein, Total 6.8 g/dL (5.8-8.1); Sodium 140 mmol/L (136-145)
[2024-04-14] MEDS: Sacubitril 49 MG/Valsartan 51 MG TABLET PO SCH (09:25)
[2024-04-14] MEDS: FLUoxetine HCl 20 MG CAP PO SCH (09:25)
[2024-04-14] MEDS: Carvedilol 6.25 MG TAB PO SCH (09:25)
[2024-04-14] MEDS: Furosemide 20 MG TAB PO SCH (09:25)
[2024-04-14] MEDS: Rosuvastatin 5 MG TAB PO SCH (09:25)
[2024-04-14] MEDS: Pantoprazole 40 MG DR.TAB PO SCH (09:25)
[2024-04-14] MEDS ORDERED: Regadenoson 0.4 MG/5 ML SYRINGE ONE (10:34)
[2024-04-14 15:00] VITALS: TEMP 98.2
[2024-04-14 17:17] VITALS: BP 115/80
== END 2024-04-14 17:43 | disposition home or self-care (01) ==
LOC: OBS 21:16
PROVIDERS: ADMIT Family Medicine; ATTEND Family Medicine
DX: R07.9 Chest pain, unspecified (principal); I42.8 Other cardiomyopathies; I11.0 Hypertensive heart disease with heart failure; F14.188 Cocaine abuse with other cocaine-induced disorder; I50.20 Unspecified systolic (congestive) heart failure; E78.5 Hyperlipidemia, unspecified; I21.4 Non-ST elevation (NSTEMI) myocardial infarction; Z95.818 Presence of other cardiac implants and grafts; Z79.02 Long term (current) use of antithrombotics/antiplatelets; Z79.899 Other long term (current) drug therapy; Z98.890 Other specified postprocedural states
CPT/HCPCS: 78452; 80053; 83735; 83880; 84484 ×2; 85025; 93017; 94760; A9502; G0378 ×2; J2785 ×2; 36415